=== PATIENT | male | born 1970 | race Caucasian/White ===

== ENCOUNTER 2017-11-09 17:32 | Outpatient (REF) | payer MEDICAID, SELFPAY ==
[2017-11-09 21:32] LABS: HCT 47.4 % (40.0-50.0); HGB 15.9 g/dL (13.5-17.5); Mean Corp. HGB Concentration 33.5 g/dL (32.0-36.0); Mean Corpuscular Hemoglobin 27.6 pg (27.0-33.0); Mean Corpuscular Volume 82.3 fL (80-95); Mean Platelet Volume 10.6 fL (8.0-11.0); Platelet Count 252 x1000/uL (130-400); RBC 5.76 m/cumm (4.50-6.00); RBC Distribution Width 14.4 % (11.8-14.1); White Blood Cell Count 12.25 k/cumm (4.4-10.8)
[2017-11-09 21:58] LABS: ALT 29 U/L (12-78); AST 16 U/L (15-37); Albumin 4.4 g/dL (3.4-5.0); Alkaline Phosphatase 134 U/L (46-116); Anion Gap 9.6 mmol/L (3-11); BUN 8 mg/dL (7-18); Bilirubin, Total 0.6 mg/dL (0.2-1.0); CO2 28.4 mmol/L (21.0-32.0); CREATININE 1.11 mg/dL (0.70-1.30); Calcium 9.3 mg/dL (8.5-10.1); Chloride 103 mmol/L (98-107); Glucose 86 mg/dL (70-100); Potassium 4.8 mmol/L (3.5-5.1); Sodium 141 mmol/L (136-145); TSH (W/Ref FT4) 1.29 uIU/mL (0.358-3.74); Total Protein 7.5 g/dL (6.4-8.2)
== END 2017-11-09 17:33 ==
LOC: NCHCN 17:32
PROVIDERS: PCP Family Medicine; Visit Provider Nurse Practitioner Family
DX: R53.83 Other fatigue (principal); R07.9 Chest pain, unspecified; R06.02 Shortness of breath
CPT/HCPCS: 80053; 85027; 84443

== ENCOUNTER 2018-11-28 16:23 | Outpatient (REF) | payer MEDICAID, SELFPAY ==
[2018-11-28 21:26] LABS: HCT 47.2 % (40.0-50.0); HGB 16.1 g/dL (13.5-17.5); Mean Corp. HGB Concentration 34.1 g/dL (32.0-36.0); Mean Corpuscular Hemoglobin 27.9 pg (27.0-33.0); Mean Corpuscular Volume 81.7 fL (80-95); Mean Platelet Volume 10.4 fL (8.0-11.0); Platelet Count 289 x1000/uL (130-400); RBC 5.78 m/cumm (4.50-6.00); RBC Distribution Width 14.4 % (11.8-14.1); White Blood Cell Count 11.28 k/cumm (4.4-10.8)
[2018-11-28 21:39] LABS: ALT 59 U/L (12-78); AST 31 U/L (15-37); Albumin 4.1 g/dL (3.4-5.0); Alkaline Phosphatase 133 U/L (46-116); Anion Gap 8.9 mmol/L (3-11); BUN 8 mg/dL (7-18); Bilirubin, Total 0.5 mg/dL (0.2-1.0); CO2 30.1 mmol/L (21.0-32.0); CREATININE 1.02 mg/dL (0.70-1.30); Calcium 9.1 mg/dL (8.5-10.1); Chloride 102 mmol/L (98-107); Glucose 86 mg/dL (70-100); Sodium 141 mmol/L (136-145); Total Protein 7.2 g/dL (6.4-8.2)
[2018-11-28 21:50] LABS: Hemoglobin A1C 5.7 % (4.5-6.2)
[2018-11-29 12:02] LABS: Calculated LDL 140 mg/dL; Cholesterol 226 mg/dL (50-200); HDL Cholesterol 35 mg/dL (40-60); Triglyceride 256 mg/dL (30-150)
== END 2018-11-28 16:43 ==
LOC: NCHCN 16:23
PROVIDERS: PCP Family Medicine; Visit Provider Nurse Practitioner Family
DX: I10 Essential (primary) hypertension (principal); R53.83 Other fatigue; R73.9 Hyperglycemia, unspecified; K76.0 Fatty (change of) liver, not elsewhere classified
CPT/HCPCS: 80053; 80061; 83721; 85027; 83036

== ENCOUNTER 2019-04-01 22:59 | Outpatient (REF) | payer MEDICAID, SELFPAY ==
[2019-04-01 21:53] LABS: Abs Immature Grans 0.04 k/cumm (0.0-0.09); Absolute Basophil Count 0.15 k/cumm (0.0-0.2); Absolute Eosinophil Count 0.61 k/cumm (0.0-0.7); Absolute Lymphocyte Count 3.37 k/cumm (1.2-3.4); Absolute Monocyte Count 0.59 k/cumm (0.11-0.7); Absolute Neutrophil Count 4.66 k/cumm (1.2-6.7); Basophils % 1.6; Eosinophils % 6.5; HCT 51.1 % (40.0-50.0); HGB 17.3 g/dL (13.5-17.5); Immature Grans % 0.4; Lymphocytes % 35.8; Mean Corp. HGB Concentration 33.9 g/dL (32.0-36.0); Mean Corpuscular Hemoglobin 27.3 pg (27.0-33.0); Mean Corpuscular Volume 80.7 fL (80-95); Mean Platelet Volume 10.3 fL (8.0-11.0); Monocytes % 6.3; Neutrophils % 49.4; Platelet Count 325 x1000/uL (130-400); RBC 6.33 m/cumm (4.50-6.00); RBC Distribution Width 14.8 % (11.8-14.1); White Blood Cell Count 9.42 k/cumm (4.4-10.8)
[2019-04-01 22:17] LABS: ALT 60 U/L (16-63); AST 36 U/L (15-37); Albumin 4.6 g/dL (3.4-5.0); Alkaline Phosphatase 128 U/L (46-116); Anion Gap 11.5 mmol/L (3-11); BUN 9 mg/dL (7-18); Bilirubin, Total 0.5 mg/dL (0.2-1.0); CO2 28.5 mmol/L (21.0-32.0); CREATININE 1.02 mg/dL (0.70-1.30); Calcium 9.3 mg/dL (8.5-10.1); Calculated LDL 94 mg/dL; Chloride 101 mmol/L (98-107); Cholesterol 168 mg/dL (<200); Glucose 88 mg/dL (74-106); HDL Cholesterol 44 mg/dL (40-60); Potassium 4.9 mmol/L (3.5-5.1); Sodium 141 mmol/L (136-145); TSH (W/Ref FT4) 2.25 uIU/mL (0.36-3.74); Total Protein 7.8 g/dL (6.4-8.2); Triglyceride 154 mg/dL (<150)
== END 2019-04-01 23:19 ==
LOC: NCHCN 22:59
PROVIDERS: PCP Family Medicine; Visit Provider Family Medicine
DX: I10 Essential (primary) hypertension (principal); E78.00 Pure hypercholesterolemia, unspecified; R73.9 Hyperglycemia, unspecified; R10.9 Unspecified abdominal pain; K76.0 Fatty (change of) liver, not elsewhere classified; J44.9 Chronic obstructive pulmonary disease, unspecified; G47.33 Obstructive sleep apnea (adult) (pediatric)
CPT/HCPCS: 80053; 80061; 81003; 84443; 85025

== ENCOUNTER 2021-02-17 21:53 | Outpatient (REF) | payer MEDICAID, SELFPAY ==
[2021-02-17 22:12] LABS: Abs Immature Grans 0.03 10^3/uL (0.0-0.06); Absolute Basophil Count 0.16 10^3/uL (0.0-0.2); Absolute Eosinophil Count 0.44 10^3/uL (0.0-0.7); Absolute Lymphocyte Count 3.46 10^3/uL (1.2-3.4); Absolute Monocyte Count 0.58 10^3/uL (0.1-0.8); Absolute Neutrophil Count 4.64 10^3/uL (1.2-6.7); Basophils % 1.7; Eosinophils % 4.7; HCT 48.3 % (40.0-50.0); Immature Grans % 0.3; Lymphocytes % 37.2; MCH 26.5 pg (27.0-33.0); MCHC 33.1 % (32.0-36.0); MCV 80.1 fL (80-95); MPV 10.3 fL (8.0-11.0); Monocytes % 6.2; Neutrophils % 49.9; Nucleated RBC 0 %; Platelet Count 274 10^3/uL (130-400); RBC 6.03 10^6/uL (4.36-5.78); RDW 14.1 % (11.8-14.1); RDW-SD 41.1 fL; WBC 9.31 10^3/uL (4.4-10.8)
[2021-02-18 00:43] LABS: Hemoglobin A1C 5.8 % (<5.7)
[2021-02-18 07:32] LABS: Calcium 9.1 mg/dL (8.5-10.1)
[2021-02-18 07:33] LABS: Albumin 4.4 g/dL (3.4-5.0); BUN 10 mg/dL (7-18); Bilirubin, Total 0.6 mg/dL (0.2-1.0); Glucose 85 mg/dL (74-106); Total Protein 7.2 g/dL (6.4-8.2)
[2021-02-18 07:35] LABS: Alkaline Phosphatase 112 U/L (46-116); Chloride 103 mmol/L (98-107); Potassium 4.5 mmol/L (3.5-5.1); Sodium 140 mmol/L (136-145)
[2021-02-18 07:36] LABS: ALT 26 U/L (16-63); AST 25 U/L (15-37); Anion Gap 9.9 mmol/L (3-11); CO2 27.1 mmol/L (21.0-32.0)
== END 2021-02-17 21:54 | disposition home or self-care (01) ==
LOC: NCHCN 21:53
PROVIDERS: PCP Family Medicine; Visit Provider Internal Medicine
DX: I10 Essential (primary) hypertension (principal); R73.03 Prediabetes; K76.0 Fatty (change of) liver, not elsewhere classified; D75.1 Secondary polycythemia
CPT/HCPCS: 80053; 83036; 85025

== ENCOUNTER 2023-05-08 16:29 | Outpatient (REF) | payer MEDICAID, SELFPAY ==
[2023-05-08 21:51] LABS: HCT 49.4 % (40.0-50.0); HGB 16.8 g/dL (13.5-17.5); MCH 27.1 pg (27.0-33.0); MCV 80 fL (80-95); MPV 9.9 fL (8.0-11.0); Platelet Count 275 10^3/uL (130-400); RDW 13.9 % (11.8-14.1); RDW-SD 40.3 fL; WBC 10.26 10^3/uL (4.4-10.8)
[2023-05-08 22:10] LABS: ALT 35 U/L (16-63); AST 26 U/L (15-37); Albumin 4.2 g/dL (3.4-5.0); Alkaline Phosphatase 113 U/L (46-116); Anion Gap 7.7 mmol/L (3-11); BUN 11 mg/dL (7-18); Bilirubin, Total 0.4 mg/dL (0.2-1.0); CO2 28.3 mmol/L (21.0-32.0); Calcium 9.2 mg/dL (8.5-10.1); Chloride 102 mmol/L (98-107); Estimated GFR 88.88 (mL/min/1.73m2); Glucose 83 mg/dL (74-106); Potassium 4.2 mmol/L (3.5-5.1); Sodium 138 mmol/L (136-145); Total Protein 7.7 g/dL (6.4-8.2)
[2023-05-08 22:26] LABS: Calculated LDL 114 mg/dL (<100); Cholesterol 186 mg/dL (<200); HDL Cholesterol 46 mg/dL (40-60); Triglyceride 130 mg/dL (<150)
[2023-05-08 22:53] LABS: Hemoglobin A1C 5.8 % (<5.7)
== END 2023-05-08 16:30 | disposition home or self-care (01) ==
LOC: NCHCN 16:29
PROVIDERS: PCP Family Medicine; Visit Provider Internal Medicine
DX: I10 Essential (primary) hypertension (principal); E78.00 Pure hypercholesterolemia, unspecified; R73.03 Prediabetes; D75.1 Secondary polycythemia
CPT/HCPCS: 80053; 80061; 85027; 83036

== ENCOUNTER 2024-05-15 15:54 | Outpatient (REF) | payer MEDICAID, SELFPAY ==
[2024-05-15 21:37] LABS: HCT 48.6 % (40.0-50.0); HGB 16.2 g/dL (13.5-17.5); MCH 27.6 pg (27.0-33.0); MCHC 33.3 % (32.0-36.0); MCV 83 fL (80-95); MPV 10.1 fL (8.0-11.0); Platelet Count 285 10^3/uL (130-400); RBC 5.86 10^6/uL (4.36-5.78); RDW 13.7 % (11.8-14.1); RDW-SD 41.5 fL; WBC 11.53 10^3/uL (4.4-10.8)
[2024-05-15 22:13] LABS: ALT 41 U/L (16-63); AST 28 U/L (15-37); Albumin 4.3 g/dL (3.4-5.0); Alkaline Phosphatase 144 U/L (46-116); Anion Gap 6.3 mmol/L (3-11); BUN 9 mg/dL (7-18); Bilirubin, Total 0.49 mg/dL (0.2-1.0); CO2 30.7 mmol/L (21.0-32.0); CREATININE 1.1 mg/dL (0.70-1.30); Calcium 9.4 mg/dL (8.5-10.1); Calculated LDL 66 mg/dL (<100); Chloride 102 mmol/L (98-107); Cholesterol 134 mg/dL (<200); Estimated GFR 78.79 (mL/min/1.73m2); Glucose 85 mg/dL (74-106); HDL Cholesterol 46 mg/dL (40-60); Potassium 4.6 mmol/L (3.5-5.1); Sodium 139 mmol/L (136-145); Total Protein 7.5 g/dL (6.4-8.2); Triglyceride 113 mg/dL (<150); Vitamin D 25 Total 6.1 ng/mL (30-100)
== END 2024-05-15 15:55 | disposition home or self-care (01) ==
LOC: NCHCN 15:54
PROVIDERS: PCP Family Medicine; Visit Provider Physician Assistant
DX: R73.03 Prediabetes (principal); D75.1 Secondary polycythemia; E66.9 Obesity, unspecified; E55.9 Vitamin D deficiency, unspecified
CPT/HCPCS: 80053; 80061; 82306; 85027; 83036